=== PATIENT | female | born 1950 | race Caucasian/White ===

== ENCOUNTER → 2018-09-24 10:48 | Outpatient (BNVA) | payer MEDICARE, SELFPAY | PROVIDERS: PCP Nurse Practitioner; Visit Provider Nurse Practitioner Adult Health | DX: G25.0 Essential tremor (principal); I10 Essential (primary) hypertension; E11.9 Type 2 diabetes mellitus without complications; Z79.84 Long term (current) use of oral hypoglycemic drugs | CPT/HCPCS: 99213 ==